=== PATIENT | male | born 1980 | race Caucasian/White ===

== ENCOUNTER 2017-10-24 11:39 | Day surgery (SDC) | payer BC ==
[~2017-10-24 11:39] MED LIST: Buffered Lidocaine 0.9% SYRIN* 5 ML/SYR SYRINGE INTRADERM ONE; Dexamethasone TAB* 4 MG PO ONE; DiMENhydriNATE IV* 50 MG/ML VIAL IV PUSH PRN; Famotidine IV* 10 MG/ML 2 ML (20 mg) IV ONE; Morphine INJ* 2 MG/ML 1 ML CARPUJECT IV PRN; Naloxone* 0.4 MG/ML 1 ML VIAL IV PRN; Ondansetron TAB* 4 MG PO ONE; PROCHLORPERAZINE INJ 5 MG/ML 2 ML VIAL IV PRN; Scopolamine 1.5 mg* PATCH TRANSDERM PRN
[2017-10-24] MEDS ORDERED: ceFAZolin 2 GM PREMIX (*) 2 GM/50 ML BAG IVPB ONE (12:54)
[2017-10-24] MEDS ORDERED: Dexamethasone TAB* 4 MG ONE (12:54)
[2017-10-24] MEDS ORDERED: Ondansetron ODT TAB* 4 MG ONE (12:54)
[2017-10-24] MEDS ORDERED: Famotidine IV* 10 MG/ML 2 ML (20 mg) ONE (12:54)
[2017-10-24] MEDS ORDERED: Atracurium* 10 MG/ML 10 ML VIAL ONE (13:20)
[2017-10-24] MEDS ORDERED: fentaNYL* 50 MCG/ML 5 ML VIAL (250 MCG VIAL) ONE (13:20)
[2017-10-24] MEDS ORDERED: Midazolam* 1 MG/ML 5 ML VIAL (5 MG) ONE (13:20)
[2017-10-24] MEDS ORDERED: KETAMINE HCL* 50 MG/ML 10 ML VIAL ONE (14:15)
[2017-10-24] MEDS ORDERED: Bupivacaine 0.25% SDV PF* 10 ML VIAL INJ ONE (14:44)
[2017-10-24] MEDS ORDERED: Glycopyrrolate IV* 0.2 MG/ML 1 ML VIAL ONE (15:47)
[2017-10-24] MEDS ORDERED: EPHEDrine (Pressors)* 50 MG/ML VIAL ONE (15:47)
[2017-10-24] MEDS ORDERED: Lidocaine 2% PF * 5 ML VIAL ONE (15:53)
[2017-10-24] MEDS ORDERED: Propofol* 10 MG/ML 20 ML BTL IV PUSH ONE (15:53)
[2017-10-24] MEDS ORDERED: fentaNYL* 50 MCG/ML 2 ML VIAL (100 MCG VIAL) ONE (16:18)
[2017-10-24] MEDS ORDERED: Scopolamine 1.5 mg* PATCH ONE (16:19)
[2017-10-24] MEDS ORDERED: DiMENhydriNATE IV* 50 MG/ML VIAL ONE (16:19)
[2017-10-24] MEDS: fentaNYL* 50 MCG/ML 2 ML VIAL (100 MCG VIAL) IV PRN ×4 (16:21→17:11)
[2017-10-24] MEDS ORDERED: oxyCODONE/Acetamin 5/325 MG* TAB ONE (17:08)
[2017-10-24 17:57] VITALS: BP 124/70
--- NOTE | 2017-10-25 10:54 | OP ---
: [facility]; Dane Choi MD * DATE OF OPERATION: 10/24/17 - LOCATED WITHIN [facility] DATE OF : 78 SURGEON: Jarvis Childress MD [employer] SPECIALIST: Perla Cantu NP ANESTHESIOLOGIST: Swapnil Rey MD ANESTHESIA: General endotracheal. PRE-OP DIAGNOSIS: Symptomatic cholelithiasis. POST-OP DIAGNOSIS: Symptomatic cholelithiasis. OPERATIVE PROCEDURE: Laparoscopic cholecystectomy. ESTIMATED BLOOD LOSS: Minimal. IV FLUIDS: Crystalloids. SPECIMEN: Gallbladder. DRAINS: None. COMPLICATIONS: None. COUNTS: Instrument, needle, and sponge counts were correct. DESCRIPTION OF PROCEDURE: The patient was brought to the operating room and placed on the table supine. Sequential compression devices were placed on both lower extremities. General anesthesia was administered. He received appropriate intravenous antibiotics. Time-out was performed. Local anesthetic was infiltrated into the skin and soft tissue prior to making each incision. Entry into the abdomen was through a transumbilical vertical incision using an open technique. After accessing the peritoneal cavity, a trocar was placed and carbon dioxide was insufflated to a pressure of 15 mmHg. Under direct visualization, additional 5 mm trocars were placed, 2 in the right upper quadrant and 1 in the subxiphoid position and a 12-mm trocar was used in the umbilical site. The gallbladder identified and appeared normal without any acute inflammatory changes. The fundus was grasped and retracted cephalad, the infundibulum was grasped and retracted and the peritoneum and rest of the gallbladder infundibulum was incised sharply and dissected free. Then, sharp and blunt dissection was used to dissect out the cystic duct and cystic artery achieving a critical view. After double clipping each structure, each structure was divided and the gallbladder was freed from attachments to the liver using the cautery. Once the gallbladder was free, it was placed in endoscopic retrieval bag and retrieved through the umbilical wound. Hemostasis was assured. Ports removed under direct visualization and carbon dioxide was released. The umbilical wound was closed with 0 Vicryl to approximate the fascia with a single suture. Skin incisions were closed with 4-0 Monocryl in subcuticular fashion. Steri- Strips were applied except in the umbilicus where a DermaFlex was used. The patient tolerated the procedure well, was extubated and transferred to Recovery in stable condition. [id number]/[facility] #: [id number]
[2017-10-27] MEDS ORDERED: Scopolamine PATCH Remove* 1 NOTE MISC PATCH OFF ONE (05:56)
== END 2017-10-24 18:13 | disposition home or self-care (01) ==
LOC: OR 11:39
PROVIDERS: ATTEND Surgery
DX: K80.10 Calculus of gallbladder with chronic cholecystitis without obstruction (principal); K21.9 Gastro-esophageal reflux disease without esophagitis; E66.01 Morbid (severe) obesity due to excess calories; Z68.41 Body mass index [BMI] 40.0-44.9, adult; I10 Essential (primary) hypertension; E78.00 Pure hypercholesterolemia, unspecified; R73.03 Prediabetes; Z85.820 Personal history of malignant melanoma of skin; K86.2 Cyst of pancreas
CPT/HCPCS: 47562; 88304; A9270-GY; J0690; J1240; J2250; J2704; J3010; J3490; J8540

== ENCOUNTER 2020-03-05 22:15 | Observation (INO) ==
[2020-03-05] MEDS ORDERED: NS 0.9% 1000 ml BAG 1,000 ML IV ONE (22:39)
[2020-03-05] MEDS ORDERED: Ondansetron 4 mg VIAL 2 MG/ML 2 ml VIAL IV ONE (22:39)
[2020-03-05] MEDS ORDERED: Pantoprazole VIAL 40 MG VIAL IV ONE (22:39)
[2020-03-05 23:37] LABS: ABS Basophils 0.1 10^3/ul (0-0.2); ABS Lymphocytes 0.4 10^3/ul (1.0-4.8); ABS Monocytes 0.9 10^3/ul (0-0.8); ABS Neutrophils 9.8 10^3/ul (1.5-7.7); Hematocrit 46 % (42-52); Hemoglobin 16.7 g/dL (14.0-18.0); Lymphocyte % 3.7 %; Mean Corpuscular HGB Conc 36 g/dL (31-36); Mean Corpuscular Hemoglobin 33 pg (27-31); Mean Corpuscular Volume 91 fL (80-94); Mean Platelet Volume 7.6 fL (7.4-10.4); Platelet Count 157 10^3/uL (150-450); Red Blood Count 5.13 10^6 /uL (4.18-5.48); Red Cell Distribution Width 13 % (10-15); White Blood Count 11.2 10^3/uL (3.5-10.8)
[2020-03-05 23:44] LABS: INR 1.12 (0.82-1.09)
[2020-03-05 23:48] LABS: ALT 21 U/L (7-52); AST 19 U/L (13-39); Albumin 4.8 g/dL (3.2-5.2); Albumin/Globulin Ratio 1.8 (1-3); Alkaline Phosphatase 44 U/L (34-104); Anion Gap 7 mmol/L (2-11); BUN/Creatinine Ratio 17.2 (8-20); Blood Urea Nitrogen 15 mg/dL (6-24); C Reactive Protein < 1.00 mg/L (<8.01); CO2 Carbon Dioxide 26 mmol/L (22-32); Calcium 9.2 mg/dL (8.6-10.3); Chloride 102 mmol/L (101-111); EGFR African American 117.6 (>60); EGFR Non-African American 97.2 (>60); Globulin 2.6 g/dL (2-4); Glucose 201 mg/dL (70-100); Lipase 38 U/L (11.0-82.0); Potassium 4.2 mmol/L (3.5-5.0); Sodium 135 mmol/L (135-145); Total Protein 7.4 g/dL (6.4-8.9)
[2020-03-06] MEDS ORDERED: Iohexol 300 (CONTRAST) 10 ML SDV IV ONE (00:59)
[2020-03-06 02:28] LABS: Urine Appearance Cloudy; Urine Bilirubin Negative (Negative); Urine Blood Negative (Negative); Urine Color Yellow; Urine Glucose Negative (Negative); Urine Ketones 1+ (Negative); Urine Nitrite Negative (Negative); Urine Protein 1+(30 mg/dL) (Negative); Urine Specific Gravity 1.026 (1.010-1.030); Urine Urobilinogen Negative (Negative)
[2020-03-06 02:31] LABS: Urine Bacteria Absent (Absent); Urine Granular Casts Present (Absent); Urine Red Blood Cell Trace(0-2/hpf) (Absent); Urine White Blood Cell 1+(6-10/hpf) (Absent)
[2020-03-06] MEDS ORDERED: Morphine 2 MG/ML SYRINGE IV PRN (03:46)
[2020-03-06] MEDS ORDERED: Ondansetron 4 mg VIAL 2 MG/ML 2 ml VIAL IV PRN (03:46)
[2020-03-06] MEDS ORDERED: Lactated Ringers 1000 ml BAG 1,000 ML IV SCH (04:00)
[2020-03-06 04:48] LABS: Activated Partial Thrombo Time 29.4 seconds (26.0-38.0); INR 1.1 (0.82-1.09)
[2020-03-06 08:32] LABS: ABS Eosinophils 0.1 10^3/ul (0-0.6); ABS Lymphocytes 1.3 10^3/ul (1.0-4.8); ABS Monocytes 0.8 10^3/ul (0-0.8); ABS Neutrophils 5.1 10^3/ul (1.5-7.7); Eosinophil % 0.8 %; Hematocrit 41 % (42-52); Hemoglobin 14.1 g/dL (14.0-18.0); Lymphocyte % 17.9 %; Mean Corpuscular HGB Conc 35 g/dL (31-36); Mean Corpuscular Hemoglobin 32 pg (27-31); Mean Corpuscular Volume 92 fL (80-94); Mean Platelet Volume 7.5 fL (7.4-10.4); Platelet Count 148 10^3/uL (150-450); Red Blood Count 4.44 10^6 /uL (4.18-5.48); Red Cell Distribution Width 13 % (10-15); White Blood Count 7.4 10^3/uL (3.5-10.8)
[2020-03-06 08:46] LABS: BUN/Creatinine Ratio 15.1 (8-20); Calcium 8.3 mg/dL (8.6-10.3); Potassium 3.7 mmol/L (3.5-5.0)
[2020-03-06 15:51] VITALS: BP 124/72
== END 2020-03-06 16:53 | disposition home or self-care (01) ==
LOC: ED 22:15 → INTOOBSV 03-06 03:31 → SSU 03-06 03:31
PROVIDERS: ADMIT Internal Medicine; ATTEND Internal Medicine